=== PATIENT | female | born 1945 | race Asian ===

== ENCOUNTER 2018-05-28 02:24 | Inpatient (IN) | payer MEDICARE, MEDICAID ==
[~2018-05-28] VITALS: Ht 160 cm; Wt 74.1 kg
[2018-05-28] VITALS (8 sets, daily range): BP systolic 107–128; BP diastolic 42–67
[2018-05-28] MEDS ORDERED: Acetaminophen 500mg (ES) tab ORAL ONE (02:30)
[2018-05-28] MEDS ORDERED: Cefepime HCl 1 GM in D5W 55 ML IVPB ONE (02:30)
[2018-05-28] MEDS ORDERED: Vancomycin 1 GM in NS 275 ML IV ONE (02:30)
[2018-05-28 03:10] LABS: APPEARANCE,URINE CLOUDY; BILIRUBIN, URINE NEGATIVE (NEGATIVE); COLOR,URINE PALE YELLOW; GLUCOSE, URINE (UA) NEGATIVE (NEGATIVE); HEMOGLOBIN 10.1 G/DL (12.0-16.0); KETONES,URINE NEGATIVE (NEGATIVE); LEUKOCYTE ESTERASE ,URINE 3+ (NEGATIVE); MEAN CORPUSCULAR VOLUME 86 FL (80-99); NITRITE,URINE NEGATIVE (NEGATIVE); PH,URINE 5 (4.5-8.0); PLATELET COUNT 228 K/UL (150-450); PROTEIN,URINE 2+ (NEGATIVE); RED BLOOD COUNT 3.59 M/UL (4.20-5.40); RED CELL DISTRIBUTION WIDTH 12.6 % (11.6-14.8); UROBILINOGEN,URINE NORMAL MG/DL (0.0-1.0); WHITE BLOOD COUNT 8.5 K/UL (4.8-10.8)
[2018-05-28 03:16] LABS: INR 0.9 (0.9-1.1)
[2018-05-28 03:18] LABS: ANION GAP 8 mmol/L (5-15); BLOOD UREA NITROGEN 32 mg/dL (7-18); CALCIUM 8.5 MG/DL (8.5-10.1); CARBON DIOXIDE 24 MMOL/L (21-32); CHLORIDE 105 MMOL/L (98-107); CREATININE 1.6 MG/DL (0.55-1.30); POTASSIUM 4.9 MMOL/L (3.5-5.1); SODIUM 137 MMOL/L (136-145)
[2018-05-28 03:30] LABS: ALANINE AMINOTRANSFERASE 23 U/L (12-78); ALBUMIN 2.8 G/DL (3.4-5.0); ALBUMIN/GLOBULIN RATIO 0.6 (1.0-2.7); ALKALINE PHOSPHATASE 112 U/L (46-116); ASPARTATE AMINO TRANSFERASE 21 U/L (15-37); BILIRUBIN,TOTAL 0.5 MG/DL (0.2-1.0); CREATINE KINASE 25 U/L (26-308)
--- NOTE | 2018-05-28 03:33 | Diagnostic Imaging Report ---
EXAM: XR Chest, 1 View CLINICAL HISTORY: COUGH TECHNIQUE: Frontal view of the chest. COMPARISON: No relevant prior studies available. FINDINGS: Artifacts: Small triangular shaped density projecting over the cardiovascular silhouette which may reflect overlapping artifact. Lungs: Low lung volumes accentuate pulmonary markings. Mild streaky densities in the lung bases likely mild atelectasis. Pleural space: Unremarkable. No pneumothorax. Heart: Cardiovascular silhouette, upper limits of normal accentuated by low lung volume. Mediastinum: Unremarkable. Bones/joints: Prior vertebral plasty in the upper lumbar spine Vasculature: Calcified mildly tortuous thoracic aorta. IMPRESSION: Low lung volume. Probable mild bibasilar atelectasis. Findings which may reflect overlapping artifact projecting over the cardiovascular silhouette. Follow-up PA and lateral chest for better visualization when patient is able
--- NOTE | 2018-05-28 03:47 | Emergency Room Report ---
History of Present Illness General Chief Complaint: Fever Source: Patient, Medical Record, EMS Present Illness HPI Patient presents with fever and body aches. She's been ill for 3 days. She denies diarrhea. She hasn't any cough or chest pain. She vomited once. She had chills today. Patient diabetic with peripheral vascular disease. No other history is obtainable. Allergies: Coded Allergies: No Known Allergies (Unverified , 05/28/18) Patient History Limited by: medical condition Past Medical History: see triage record Past Surgical History: other - foot amputation Social History: Denies: smoking Social History Narrative SNF Last Menstrual Period: none Now: No Reviewed Nursing Documentation: PMH: Agreed; PSxH: Agreed Nursing Documentation-PMH Hx Cardiac Problems: Yes - CAD, high cholesterol Hx Hypertension: Yes Hx Diabetes: Yes - Type 2 Hx Neurological Problems: Yes - Neuropathy pain Review of Systems All Other Systems: limited Physical Exam Vital Signs Date Time Temp Pulse Resp B/P (MAP) Pulse Ox O2 Delivery O2 Flow Rate FiO2 05/28/18 02:12 103.5 90 15 144/69 98 Room Air Sp02 EP Interpretation: reviewed, normal General Appearance: well appearing, no apparent distress, other - GCS 14 Head: normocephalic Eyes: bilateral eye normal inspection, bilateral eye PERRL ENT: moist mucus membranes Neck: supple Respiratory: lungs clear, normal breath sounds Cardiovascular #1: regular rate, rhythm Cardiovascular #2: 2+ radial (R) Gastrointestinal: normal inspection, normal bowel sounds, non tender, no mass, non-distended Genitourinary: no CVA tenderness Musculoskeletal: back normal, normal range of motion, other - post amputation R transmetatarsal Neurologic: alert, oriented x3, motor strength/tone normal, sensory intact Psychiatric: mood/affect normal Skin: normal inspection, warm/dry Medical Decision Making Diagnostic Impression: Primary Impression: Urinary tract infection Qualified Codes: N39.0 - Urinary tract infection, site not specified Additional Impressions: Renal insufficiency Hyperglycemia ER Course Patient presents with fever and body aches with the possibility of symptoms. Differential includes sepsis, diabetic ketoacidosis, urinary tract infection, pneumonia amongst others including viral syndrome. Patient will be evaluated with EKG, chest x-ray and labs including blood cultures and lactate. The patient will be treated with IV hydration and Tylenol. Due to the clarity the lungs urine is highly suspected. Antibiotic's will be started for covering urinary tract infection. WBC normal but L shift. CMP with renal insufficiency. Troponin normal. Elevated BNP. Normal lactate. Glucose 174. Patient improved with treatment. Needs further evaluation for source of infection and continued antibiotics with monitoring of renal function. Admit med Dr. Will. EKG Diagnostic Results Rate: normal Rhythm: NSR ST Segments: no acute changes Rhythm Strip Diag. Results EP Interpretation: yes Rhythm: NSR, no PVC's, no ectopy Chest X-Ray Diagnostic Results Chest X-Ray Diagnostic Results : Chest X-Ray Ordered: Yes # of Views/Limited/Complete: 1 View Indication: Chest Pain Interpretation: no effusion, no pneumothorax, other - atelectasis Impression: Other Electronically Signed by: Electronically signed by Levar Merida MD Status: improved Disposition: ADMITTED INPATIENT Condition: Serious Levar Merida MD May 28, 2018 03:47
[2018-05-28] MEDS ORDERED: Vancomycin 1gm/D5W 275ml IVPB SCH ×4 (05:00→17:00)
[2018-05-28] MEDS ORDERED: traMADol 50mg tab ORAL PRN (07:45)
[2018-05-28] MEDS ORDERED: Lactulose 20gm/30ml UDC ORAL ONE (08:45)
[2018-05-28] MEDS ORDERED: Lactulose 20gm/30ml UDC ORAL PRN (09:30)
[2018-05-28] MEDS: Vitamin D 1000 IU Tab ORAL SCH ×2 (09:47→17:02)
[2018-05-28] MEDS: Losartan 50mg tab ORAL SCH (09:48)
[2018-05-28] MEDS: Aspirin EC 81mg tab ORAL SCH (09:48)
[2018-05-28] MEDS: Carvedilol 12.5mg tab ORAL SCH ×2 (09:49→21:00)
[2018-05-28] MEDS: Heparin 5000 units/ml inj SUBQ SCH ×2 (09:52→21:09)
[2018-05-28] MEDS: Piperacillin/Tazobactam 3.375 GM in D5W 110 ML IVPB SCH ×2 (10:08→21:08)
[2018-05-28] MEDS: NovoLOG Insulin Flexpen SUBQ SCH ×3 (12:30→21:10)
[2018-05-28] MEDS: HydrALAZINE 50mg tab ORAL SCH ×2 (13:09→21:09)
--- NOTE | 2018-05-28 18:16 | Consultation ---
DATE OF CONSULTATION: 05/28/2018 INFECTIOUS DISEASES CONSULTATION This consult is for coverage of Dr. Will. PRIMARY ATTENDING: Levar Will M.D. REASON FOR CONSULTATION: UTI and fever. HISTORY OF PRESENT ILLNESS: A 72-year-old female, who is a [place]iary resident, admitted today because of fever. The patient had a temperature up to 103.5 degrees in the ER. She has been here for the last couple of days complaining of body pains. 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 ALLERGIES: No known drug allergies. MEDICATIONS: Januvia, Lipitor, Xalatan eye drops, fish oil, vancomycin, Zosyn, insulin, heparin, gabapentin, vitamin D, Plavix, Cozaar, hydrochlorothiazide, aspirin, carvedilol, amlodipine, Protonix, ferrous sulfate, Bisacodyl, Tylenol, and tramadol. SOCIAL HISTORY: detention resident. No history of alcohol, drug abuse, or smoking. She is single. REVIEW OF SYSTEMS: As history of present illness with fever and body aches. No nausea. No vomiting. No diarrhea. PHYSICAL EXAMINATION: VITAL SIGNS: Temperature 98.4 degrees, pulse 79, blood pressure 115/56. GENERAL APPEARANCE: Seems to be normal rate. No acute distress. HEAD AND NECK: Bolton conjunctiva. No oral lesion. HEART: S1, S2 regular. LUNGS: Clear. ABDOMEN: Soft and nontender. EXTREMITIES: She has no edema. The patient has amputation in right forefoot with loss of all of toes in the right side. The amputation site is well healed. There is no skin lesion. NEUROLOGIC: She seems awake, alert, verbal. LABORATORY AND DIAGNOSTIC DATA: Sodium 137, potassium 4.9, chloride 105, bicarbonate 24, BUN 32, creatinine 1.6, and glucose 174. WBC 8.5, hemoglobin 10.1, hematocrit 31, and platelet 228,000. UA showed leukocyte esterase 3+, WBC of 20 to 30, RBC 2 to 4. Influenza A and B antigens were negative. IMPRESSION: Fever, likely secondary to urinary tract infection. The patient has pyuria, has diabetes mellitus, hypertension, coronary artery disease, anemia, and renal failure. RECOMMENDATION: Continue with Zosyn and vancomycin. We will follow up the cultures and taper antibiotics. At the end of my exam, I thank Dr. Will for involving me in the care of this patient. Anthony Costello M.D. DR: Lloyd JOB#: [id number] CC: PASCUAL
--- NOTE | 2018-05-28 19:32 | History and Physical Report ---
DATE OF ADMISSION: 05/28/2018 CHIEF COMPLAINT: fevers. HISTORY OF PRESENT ILLNESS: The patient is a 72-year-old female. She has history of hypertension, diabetes. She has history of right transmetatarsal amputation because of peripheral artery disease and diabetic foot infection. She was transferred from a residential facility with complaints of fevers and chills. According to the patient, she was well until the night of admission when she developed severe chills and rigors. She had high fever and was transferred to the emergency room. She denies any chest pain. She has had no shortness of breath. No cough. She had 1 episode of vomiting, but denies any diarrhea. On evaluation in the emergency room, she did have 20-30 wbc's in her urine. She was febrile to 103.5. The patient has been pancultured and broad-spectrum IV antibiotics have been instituted. She is now admitted for further evaluation and care. She states that her roommate has been ill. She also notes some pain in the right foot that she previously had the amputation. PAST MEDICAL HISTORY: As above. PAST SURGICAL HISTORY: As above. CURRENT MEDICATIONS: Reconciled and reviewed. ALLERGIES: None. FAMILY HISTORY: None. SOCIAL HISTORY: Negative for tobacco, ethanol, or drugs. REVIEW OF SYSTEMS: GENERAL: Positive for fevers and chills. HEENT: No headaches or visual changes. CARDIOPULMONARY: No chest pain or shortness of breath. GASTROINTESTINAL: Positive nausea and vomiting. No diarrhea. GENITOURINARY: No urgency or frequency. MUSCULOSKELETAL: Positive right foot pain. NEUROLOGIC: No evidence of seizures. PHYSICAL EXAMINATION: VITAL SIGNS: Temperature 103.5, pulse 90, respirations 15, blood pressure 144/69. GENERAL: The patient is a well-developed female, in no apparent distress. HEART: Regular rate and rhythm. LUNGS: Clear. ABDOMEN: Soft, nontender, nondistended. EXTREMITIES: Without clubbing or cyanosis. There is a right well-healed transmetatarsal amputation without any erythema or discharge noted. LABORATORY DATA: UA showed 20-30 wbc's. White count 8, hemoglobin 10, hematocrit 31. Sodium 137, creatinine 1.6. Coags were normal. ASSESSMENT AND PLAN: This is a pleasant female with history of diabetes, hypertension, recent transmetatarsal amputation with complaints of fevers and chills, suspect secondary to urinary tract infection. The patient does have pain in the right foot. Ordered MRI to rule out infection. We will continue broad-spectrum IV antibiotics. ID and Cardiology consultation will be obtained. Plan of care was discussed at the bedside with the patient's family. Arnold Rivera M.D. DR: Maicol JOB#: [id number] CC:
--- NOTE | 2018-05-28 19:46 | Consultation ---
DATE OF CONSULTATION: 05/28/2018 CONSULTING PHYSICIAN: Levar Will M.D. REFERRING PHYSICIAN: Arnold Rivera M.D. REASON FOR CONSULTATION: Elevated natriuretic peptide, evaluate for congestive heart failure. HISTORY OF PRESENT ILLNESS: I was asked to assess this 72-year-old [place] female, who resides at a [facility] facility and was admitted to the hospital with fevers of 103.5 and signs of an acute urinary tract infection with sepsis. Of concern, is an elevated natriuretic peptide assay prompting this consultation. The patient has had body aches for several days. She has fevers and chills this evening. She was increasingly withdrawn and lethargic. She did not have any complaints of chest pain or shortness of breath, cough or sputum production or noted leg swelling. ALLERGIES: No known drug allergies. MEDICATIONS: Prior to admission, reviewed and reconciled. PAST MEDICAL HISTORY: Includes coronary artery disease, hyperlipidemia, hypertension with hypertensive heart disease, cerebrovascular disease, peripheral neuropathy, type 2 diabetes mellitus, and chronic kidney disease due to diabetic nephropathy. SOCIAL HISTORY: No record of smoking, alcohol, or substance abuse. FAMILY HISTORY: Noncontributory. REVIEW OF SYSTEMS: A 10-point review of systems performed. All systems negative other than noted above. PHYSICAL EXAMINATION: VITAL SIGNS: In the emergency room, temperature was 103.5, blood pressure 144/69, heart rate 90, respiratory rate 15, and oxygen saturation 98% on room air. Current vital signs, blood pressure 115/56, pulse 79, respirations 18, afebrile, and room air oxygen saturation 97%. HEENT: Conjunctivae pink. Sclerae anicteric. Oropharynx clear. Mucous membranes dry. NECK: Supple. Jugular venous pressure normal. LUNGS: Diminished breath sounds. No wheezing. CARDIAC: Regular rhythm and rate. Normal S1, S2. There is a fourth heart sound. ABDOMEN: Soft and nontender. No guarding or rebound. EXTREMITIES: No clubbing or cyanosis. Slightly decreased capillary refill. No edema. NEUROLOGIC: Mild cognitive impairment. Symmetric strength. Exam is limited by language barrier. DIAGNOSTIC DATA: Chest x-ray with atelectasis and it is a poor study. EKG reveals sinus rhythm with no acute ST-T wave abnormalities. LABORATORY DATA: White count 8.5, hemoglobin 10.1, and platelet count 228,000. Lactic acid 1. Troponin 0.041. Pro natriuretic peptide 1884. Albumin 2.8. BUN 32, creatinine 1.6, sodium 137, potassium 4.9, and bicarb 24. Urinalysis with 20 to 30 white cells. IMPRESSION: 1. Sepsis. 2. Urinary tract infection. 3. Possible pneumonia. 4. No clinical signs of acute congestive heart failure, likely chronic diastolic congestive heart failure. 5. Hypertensive heart disease. 6. Ischemic cardiomyopathy with stable angina. 7. Type 2 diabetes mellitus with neuropathy and nephropathy. 8. Moderate protein-calorie malnutrition. PLAN: 1. Cautious hydration. 2. Panculture. 3. Broad-spectrum antibiotics. 4. Repeat chest x-ray. 5. Respiratory hygiene. 6. Protein supplement. 7. Antiplatelet therapy. 8. Titrate antianginal and antihypertensives based on clinical parameters. 9. DVT prophylaxis. Levar Will M.D. DR: BUSHRA JOB#: [id number] CC:
[2018-05-28] MEDS: Atorvastatin 20mg tab ORAL SCH (21:08)
[2018-05-28] MEDS: Latanoprost 0.005% Opth 2.5ml Soln BOTH EYES SCH (21:08)
[2018-05-29] VITALS: BP 112/54
[2018-05-29 04:00] VITALS: BP 115/55
[2018-05-29] MEDS: HydrALAZINE 50mg tab ORAL SCH ×3 (05:58→21:46)
[2018-05-29] MEDS: NovoLOG Insulin Flexpen SUBQ SCH ×4 (05:59→20:29)
--- NOTE | 2018-05-29 07:16 | General Progress Note ---
Assessment/Plan Problem List: (1) Urinary tract infection ICD Codes: N39.0 - Urinary tract infection, site not specified SNOMED: 04292438 (2) Hyperglycemia ICD Codes: R73.9 - Hyperglycemia, unspecified SNOMED: 71773068 (3) Renal insufficiency ICD Codes: N28.9 - Disorder of kidney and ureter, unspecified SNOMED: 697715310, 393210126 (4) Sepsis ICD Codes: A41.9 - Sepsis, unspecified organism SNOMED: 94306656 Status: stable, progressing Assessment/Plan iv abx follow up cultures tylenol for fever mri right foot to r/o osteo Subjective ROS Limited/Unobtainable: No Constitutional: Reports: fever, malaise, weakness HEENT: Reports: no symptoms Cardiovascular: Reports: no symptoms Respiratory: Reports: no symptoms Gastrointestinal/Abdominal: Reports: no symptoms Genitourinary: Reports: no symptoms Neurologic/Psychiatric: Reports: no symptoms Endocrine: Reports: no symptoms Hematologic/Lymphatic: Reports: no symptoms Allergies: Coded Allergies: No Known Allergies (Unverified , 05/28/18) All Systems: reviewed and negative except above Subjective feels better. still with low grade temps. still with right foot pain Objective Last 24 Hour Vital Signs Date Time Temp Pulse Resp B/P (MAP) Pulse Ox O2 Delivery O2 Flow Rate FiO2 05/29/18 05:58 115/55 05/29/18 04:00 97.8 85 18 115/55 (75) 98 05/29/18 00:00 99.7 89 20 112/54 (73) 99 05/28/18 21:09 112/54 05/28/18 21:00 92 112/54 05/28/18 20:24 99.9 92 18 112/54 (73) 91 05/28/18 20:19 Room Air 05/28/18 16:00 97.9 77 18 128/67 (87) 97 05/28/18 13:09 114/56 05/28/18 12:00 98.2 74 18 114/56 (75) 97 05/28/18 09:49 79 115/56 05/28/18 09:49 79 115/56 05/28/18 09:48 115/56 05/28/18 09:00 Room Air 05/28/18 08:00 98.4 79 18 115/56 (75) 97 Intake and Output 05/28/18 05/29/18 19:00 07:00 Intake Total 1150 ml 910.0 ml Balance 1150 ml 910.0 ml Intake Oral 800 ml 200 ml IV Total 350 ml 710.0 ml # Voids 1 3 Height (Feet): 5 Height (Inches): 3.00 Weight (Pounds): 161 General Appearance: WD/WN, alert Neck: supple Cardiovascular: normal rate, regular rhythm Respiratory/Chest: chest wall non-tender, lungs clear, normal breath sounds, no respiratory distress Abdomen: normal bowel sounds, non tender, soft, no organomegaly Edema: no edema noted Arm (L), no edema noted Arm (R), no edema noted Leg (L), no edema noted Leg (R), no edema noted Pedal (L), no edema noted Pedal (R), no edema noted Generalized Arnold Rivera MD May 29, 2018 07:16
[2018-05-29 08:01] LABS: BASOPHILS % (AUTO) 0.6 % (0.0-2.0); EOSINOPHILS % (AUTO) 1.8 % (0.0-3.0); HEMATOCRIT 28.2 % (37.0-47.0); HEMOGLOBIN 9.3 G/DL (12.0-16.0); LYMPHOCYTES % (AUTO) 16.5 % (20.0-45.0); MEAN CORPUSCULAR VOLUME 87 FL (80-99); MONOCYTES % (AUTO) 11.9 % (1.0-10.0); NEUTROPHILS % (AUTO) 69.3 % (45.0-75.0); PLATELET COUNT 204 K/UL (150-450); RED BLOOD COUNT 3.23 M/UL (4.20-5.40); RED CELL DISTRIBUTION WIDTH 12.8 % (11.6-14.8)
[2018-05-29 08:09] VITALS: BP 114/57
[2018-05-29 08:22] LABS: ALANINE AMINOTRANSFERASE 23 U/L (12-78); ALBUMIN 2.3 G/DL (3.4-5.0); ALBUMIN/GLOBULIN RATIO 0.5 (1.0-2.7); ALKALINE PHOSPHATASE 99 U/L (46-116); ANION GAP 9 mmol/L (5-15); ASPARTATE AMINO TRANSFERASE 20 U/L (15-37); BILIRUBIN,TOTAL 0.4 MG/DL (0.2-1.0); BLOOD UREA NITROGEN 28 mg/dL (7-18); CALCIUM 7.9 MG/DL (8.5-10.1); CARBON DIOXIDE 22 MMOL/L (21-32); CHLORIDE 106 MMOL/L (98-107); CHOLESTEROL 131 MG/DL (< 200); CREATININE 1.7 MG/DL (0.55-1.30); HDL CHOLESTEROL 40 MG/DL (40-60); POTASSIUM 4.5 MMOL/L (3.5-5.1); SODIUM 137 MMOL/L (136-145); TRIGLYCERIDES 140 MG/DL (30-150)
[2018-05-29] MEDS: Carvedilol 12.5mg tab ORAL SCH ×2 (08:22→20:27)
[2018-05-29] MEDS: Aspirin EC 81mg tab ORAL SCH (08:23)
[2018-05-29] MEDS: Losartan 50mg tab ORAL SCH (08:23)
[2018-05-29] MEDS: Vitamin D 1000 IU Tab ORAL SCH (08:24)
[2018-05-29] MEDS: Heparin 5000 units/ml inj SUBQ SCH ×2 (08:25→20:28)
[2018-05-29] MEDS: Piperacillin/Tazobactam 3.375 GM in D5W 110 ML IVPB SCH ×2 (10:35→21:46)
--- NOTE | 2018-05-29 10:59 | Infectious Diseases Prog Note ---
Assessment/Plan Assessment/Plan antibiotics : vancomycin iv, zosyn A 1. gram negative UTI 2. renal failure 3. diabetes mellitus 4. hypertension P 1. continue zosyn 2. d/c iv vancomycin 3. will follow up cultures 4. US abdomen Subjective ROS Limited/Unobtainable: Yes Allergies: Coded Allergies: No Known Allergies (Unverified , 05/28/18) Objective Vital Signs Last 24 Hour Vital Signs Date Time Temp Pulse Resp B/P (MAP) Pulse Ox O2 Delivery O2 Flow Rate FiO2 05/29/18 09:00 Room Air 05/29/18 08:24 82 114/57 05/29/18 08:23 114/57 05/29/18 08:22 82 114/57 05/29/18 08:09 98.8 82 18 114/57 (76) 05/29/18 05:58 115/55 05/29/18 04:00 97.8 85 18 115/55 (75) 98 05/29/18 00:00 99.7 89 20 112/54 (73) 99 05/28/18 21:09 112/54 05/28/18 21:00 92 112/54 05/28/18 20:24 99.9 92 18 112/54 (73) 91 05/28/18 20:19 Room Air 05/28/18 16:00 97.9 77 18 128/67 (87) 97 05/28/18 13:09 114/56 05/28/18 12:00 98.2 74 18 114/56 (75) 97 Height (Feet): 5 Height (Inches): 3.00 Weight (Pounds): 161 Respiratory/Chest: lungs clear Cardiovascular: normal rate, regular rhythm, no gallop/murmur Abdomen: soft, non tender Extremities: no edema Microbiology Date/Time Source Procedure Growth Status 05/28/18 02:40 Blood Blood Culture - Preliminary NO GROWTH AFTER 24 HOURS Resulted 05/28/18 02:25 Blood Blood Culture - Preliminary NO GROWTH AFTER 24 HOURS Resulted 05/28/18 05:00 Nasal Nares Influenza Types A,B Antigen (ALFRED) - Final Complete 05/28/18 02:30 Urine,Clean Catch Urine Culture - Preliminary Gram Negative Bacillus 1 Resulted Laboratory Tests Test 05/29/18 07:15 White Blood Count 8.0 K/UL (4.8-10.8) Red Blood Count 3.23 M/UL (4.20-5.40) L Hemoglobin 9.3 G/DL (12.0-16.0) L Hematocrit 28.2 % (37.0-47.0) L Mean Corpuscular Volume 87 FL (80-99) Mean Corpuscular Hemoglobin 28.8 PG (27.0-31.0) Mean Corpuscular Hemoglobin Concent 33.0 G/DL (32.0-36.0) Red Cell Distribution Width 12.8 % (11.6-14.8) Platelet Count 204 K/UL (150-450) Mean Platelet Volume 6.7 FL (6.5-10.1) Neutrophils (%) (Auto) 69.3 % (45.0-75.0) Lymphocytes (%) (Auto) 16.5 % (20.0-45.0) L Monocytes (%) (Auto) 11.9 % (1.0-10.0) H Eosinophils (%) (Auto) 1.8 % (0.0-3.0) Basophils (%) (Auto) 0.6 % (0.0-2.0) Sodium Level 137 MMOL/L (136-145) Potassium Level 4.5 MMOL/L (3.5-5.1) Chloride Level 106 MMOL/L (98-107) Carbon Dioxide Level 22 MMOL/L (21-32) Anion Gap 9 mmol/L (5-15) Blood Urea Nitrogen 28 mg/dL (7-18) H Creatinine 1.7 MG/DL (0.55-1.30) H Estimat Glomerular Filtration Rate mL/min (>60) Glucose Level 166 MG/DL (74-106) H Calcium Level 7.9 MG/DL (8.5-10.1) L Magnesium Level 1.5 MG/DL (1.8-2.4) L Total Bilirubin 0.4 MG/DL (0.2-1.0) Aspartate Amino Transf (AST/SGOT) 20 U/L (15-37) Alanine Aminotransferase (ALT/SGPT) 23 U/L (12-78) Alkaline Phosphatase 99 U/L (46-116) Pro-B-Type Natriuretic Peptide 9146 pg/mL (0-125) H Total Protein 6.9 G/DL (6.4-8.2) Albumin 2.3 G/DL (3.4-5.0) L Globulin 4.6 g/dL Albumin/Globulin Ratio 0.5 (1.0-2.7) L Triglycerides Level 140 MG/DL (30-150) Cholesterol Level 131 MG/DL (< 200) LDL Cholesterol 71 mg/dL (<100) HDL Cholesterol 40 MG/DL (40-60) Cholesterol/HDL Ratio 3.3 (3.3-4.4) Thyroid Stimulating Hormone (TSH) 1.953 uiU/mL (0.358-3.740) Current Medications Medications (Trade) Dose Ordered Sig/Paul Route PRN Reason Start Time Stop Time Status Last Admin Dose Admin Acetaminophen (Tylenol) 650 mg Q4H PRN ORAL Mild Pain/Temp > 100.5 05/28/18 07:45 06/27/18 07:44 Amlodipine Besylate (Norvasc) 10 mg DAILY ORAL 05/28/18 09:00 06/27/18 08:59 05/29/18 08:24 Aspirin (Ecotrin) 81 mg DAILY ORAL 05/28/18 09:00 06/27/18 08:59 05/29/18 08:23 Atorvastatin Calcium (Lipitor) 40 mg BEDTIME ORAL 05/28/18 21:00 06/27/18 20:59 05/28/18 21:08 Bisacodyl (Dulcolax) 10 mg DAILYPRN PRN RECTAL Constipation 05/28/18 08:45 06/27/18 08:44 Carvedilol (Coreg) 12.5 mg EVERY 12 HOURS ORAL 05/28/18 09:00 06/27/18 08:59 05/29/18 08:22 Clopidogrel Bisulfate (Plavix) 75 mg DAILY ORAL 05/28/18 09:00 06/27/18 08:59 05/29/18 08:24 Dextrose (Dextrose 50%) 25 ml Q30M PRN IV Hypoglycemia 05/28/18 07:45 06/27/18 07:44 Dextrose (Dextrose 50%) 50 ml Q30M PRN IV Hypoglycemia 05/28/18 07:45 06/27/18 07:44 Ferrous Sulfate (Feosol) 325 mg DAILY ORAL 05/28/18 09:00 06/27/18 08:59 05/29/18 08:23 Fish Oil (Fish Oil) 1,000 mg BID ORAL 05/28/18 18:00 06/27/18 08:59 05/29/18 08:23 Gabapentin (Neurontin) 300 mg THREE TIMES A DAY ORAL 05/28/18 09:00 06/27/18 08:59 05/29/18 08:23 Heparin Sodium (Porcine) (Heparin 5000 units/ml) 5,000 units EVERY 12 HOURS SUBQ 05/28/18 09:00 06/27/18 08:59 05/29/18 08:25 Hydralazine HCl (Apresoline) 50 mg Q8HR ORAL 05/28/18 14:00 06/27/18 13:59 05/28/18 13:09 Insulin Aspart (NovoLOG) BEFORE MEALS AND HS SUBQ 05/28/18 11:30 06/27/18 11:29 05/29/18 05:59 Lactulose (Cephulac) 30 gm DAILY PRN ORAL constipation 05/28/18 09:30 06/27/18 09:29 Latanoprost (Xalatan) 1 drop BEDTIME BOTH EYES 05/28/18 21:00 06/27/18 20:59 05/28/18 21:08 Losartan Potassium (Cozaar) 100 mg DAILY ORAL 05/28/18 09:00 06/27/18 08:59 05/29/18 08:23 Pantoprazole (Protonix) 40 mg DAILY ORAL 05/28/18 09:00 06/27/18 08:59 05/29/18 08:24 Piperacillin Sod/ Tazobactam Sod 3.375 gm/Dextrose 110 ml @ 27.5 mls/hr Q12H IVPB 05/28/18 10:00 06/04/18 09:59 05/29/18 10:35 Sitagliptin Phosphate (Januvia) 100 mg ACBREAKFAST ORAL 05/29/18 06:30 06/28/18 06:29 05/29/18 05:59 Sodium Chloride 1,000 ml @ 75 mls/hr [id number] IV 05/28/18 08:45 06/27/18 08:44 05/28/18 09:50 Tramadol HCl (Ultram) 50 mg Q6H PRN ORAL Moderate Pain (Pain Scale 4-6) 05/28/18 07:45 06/04/18 07:44 Vancomycin HCl (Vanco rx to dose) 1 ea DAILY PRN MISC Per rx protocol 05/28/18 08:45 06/27/18 08:44 Vancomycin HCl 1 gm/Dextrose 275 ml @ 183.708 mls/hr Q24H IVPB 05/28/18 17:00 06/02/18 16:59 05/28/18 17:03 Vitamin D (Vitamin D) 1,000 intlu BID ORAL 05/28/18 09:00 06/27/18 08:59 05/29/18 08:24 Lynda Holman MD May 29, 2018 10:59
--- NOTE | 2018-05-29 11:44 | Diagnostic Imaging Report ---
Indication: Cough Technique: One view of the chest Comparison: 05/28/2018 Findings: The heart is upper limits normal in size. The lungs and pleural spaces are clear. There is no significant interim change Impression: No acute process
[2018-05-29 12:15] VITALS: BP 109/61
--- NOTE | 2018-05-29 17:03 | Diagnostic Imaging Report ---
. Indication: Reason For Exam: INFECT Technique: Sagittal, axial, coronal T1 fast spin echo and fast spin echo STIR images of the ankle Comparison: none Findings: Patient is status post transmetatarsal amputation. Increased STIR signal with less extensive distal T1 abnormality is seen within the fourth metatarsal stump. Increased STIR signal with equivocal decreased distal less extensive T1 signal is seen in the third metatarsal stump. Decreased distal T1 signal is seen in the second and first metatarsal stumps. No other area of narrow signal abnormality is demonstrated. There is considerable edema of the superficial fat as well as the deep muscular compartments. Impression: Abnormal STIR signal with less extensive T1 signal abnormality within the first through fourth metatarsal stumps, in patient status post recent transmetatarsal indication. Uncertain as to whether signal changes are reactive due to the recent surgery, versus representing early osteomyelitis changes. Superficial soft tissue edema. No definite drainable soft tissue abscess demonstrated.
--- NOTE | 2018-05-29 18:12 | Cardiology Report ---
APPROVED REPORT EXAM: Two-dimensional and M-mode echocardiogram with Doppler and color Doppler. INDICATION Congestive Heart Failure M-Mode DIMENSIONS IVSd1.2 (0.7-1.1cm)Left Atrium (MM)3.9 (1.6-4.0cm) LVDd4.7 (3.5-5.6cm)Aortic Root3.0 (2.0-3.7cm) PWd1.1 (0.7-1.1cm)Aortic Cusp Exc.1.8 (1.5-2.0cm) LVDs3.3 (2.5-4.0cm) PWs1.9 cm Normal left ventricular chamber size, systolic function and wall motion. Left ventricular ejection fraction estimated to be 55 %. Mild left ventricular hypertrophy. Anterior Echo-free space, may be due to pericardial fat or effusion. All other cardiac chamber sizes are within normal limits. Mild focal aortic valve sclerosis with adequate cusp excursion. Mildly thickened mitral valve leaflets with normal excursion. Mild mitral annulus and aortic root calcification. Pulmonic valve not well visualized. Normal tricuspid valve structure. IVC dilated at 2.1 cm with physiological collapse. A color flow and spectral Doppler study was performed and revealed: Trace aortic insufficiency. Mild mitral regurgitation. Mitral diastolic velocities suggest mild left ventricular diastolic dysfunction (Grade I). Trace tricuspid regurgitation. Tricuspid systolic velocities suggests peak right ventricular systolic pressure of 22 mmHg. Trace pulmonic regurgitation present.
[2018-05-29 20:00] VITALS: BP 109/47
[2018-05-29] MEDS: Atorvastatin 20mg tab ORAL SCH (20:27)
[2018-05-29] MEDS: Latanoprost 0.005% Opth 2.5ml Soln BOTH EYES SCH (20:27)
[2018-05-30] VITALS (7 sets, daily range): BP systolic 117–128; BP diastolic 54–68
--- NOTE | 2018-05-30 04:16 | Progress Note ---
DATE: 05/29/2018 CARDIOLOGY PROGRESS NOTE SUBJECTIVE: The patient has no new complaints. She still has foot pain. No shortness of breath. OBJECTIVE: VITAL SIGNS: Blood pressure 115/55, pulse 85, respiratory rate 18, temperature max 99.7. LUNGS: Clear. CARDIAC: Regular. Normal S1, S2. ABDOMEN: Soft. EXTREMITIES: No edema. Foot has dressing in place. DIAGNOSTIC DATA: MRI cannot exclude osteomyelitis, there is no abscess. Chest x-ray with no acute process. Echocardiogram, ejection fraction and mild degenerative valve disease. LABORATORY DATA: White count 8, hemoglobin 9.3. Sodium 137, potassium 4.5, bicarbonate 22, BUN 28, creatinine 1.7, magnesium 1.5. Pro-natriuretic peptide has increased to 9000. IMPRESSION: 1. Sepsis. 2. Possible osteomyelitis. 3. Cellulitis. 4. Acute on chronic diastolic congestive heart failure. 5. Hypertensive heart disease. 6. Hypomagnesemia. 7. Lou-pvljqyj-qykmnvtgs diabetes mellitus. PLAN: 1. IV magnesium. 2. Discontinue IV fluids. 3. Continue antimicrobials. 4. Titrate antihypertensive. 5. DVT prophylaxis. 6. titration. 7. Antimicrobials per Infectious Disease window covering sales consultant. Levar Will M.D. DR: Hazel JOB#: [id number] CC:
[2018-05-30] MEDS: HydrALAZINE 50mg tab ORAL SCH ×3 (06:19→22:12)
--- NOTE | 2018-05-30 06:19 | General Progress Note ---
Assessment/Plan Problem List: (1) Urinary tract infection ICD Codes: N39.0 - Urinary tract infection, site not specified SNOMED: 71887055 (2) Hyperglycemia ICD Codes: R73.9 - Hyperglycemia, unspecified SNOMED: 47372344 (3) Renal insufficiency ICD Codes: N28.9 - Disorder of kidney and ureter, unspecified SNOMED: 120728273, 884543408 (4) Sepsis ICD Codes: A41.9 - Sepsis, unspecified organism SNOMED: 14292619 Status: stable, progressing Assessment/Plan iv abx follow up cultures- gnr in urine tylenol for fever mri right foot noted- ?post op changes vs early osteo podiatry eval Subjective ROS Limited/Unobtainable: No Constitutional: Reports: malaise, weakness HEENT: Reports: no symptoms Cardiovascular: Reports: no symptoms Respiratory: Reports: no symptoms Gastrointestinal/Abdominal: Reports: no symptoms Genitourinary: Reports: no symptoms Neurologic/Psychiatric: Reports: no symptoms Endocrine: Reports: no symptoms Hematologic/Lymphatic: Reports: no symptoms Allergies: Coded Allergies: No Known Allergies (Unverified , 05/28/18) All Systems: reviewed and negative except above Subjective feels better. MRI foot noted- ?periop changes vs early osteo Objective Last 24 Hour Vital Signs Date Time Temp Pulse Resp B/P (MAP) Pulse Ox O2 Delivery O2 Flow Rate FiO2 05/30/18 04:00 98.5 76 20 119/57 (77) 98 05/30/18 00:00 98.9 85 18 117/57 (77) 97 05/29/18 21:46 109/47 05/29/18 21:00 Room Air 05/29/18 20:27 75 109/47 05/29/18 20:00 98.6 75 19 109/47 (67) 98 05/29/18 14:18 119/63 05/29/18 12:15 98.4 80 18 109/61 (77) 93 05/29/18 09:00 Room Air 05/29/18 08:24 82 114/57 05/29/18 08:23 114/57 05/29/18 08:22 82 114/57 05/29/18 08:09 98.8 82 18 114/57 (76) Intake and Output 05/29/18 05/30/18 19:00 07:00 Intake Total 1162.5 ml 110.0 ml Balance 1162.5 ml 110.0 ml Intake Oral 600 ml IV Total 562.5 ml 110.0 ml # Voids 4 Laboratory Tests 05/29/18 07:15: White Blood Count 8.0, Red Blood Count 3.23L, Hemoglobin 9.3L, Hematocrit 28.2L , Mean Corpuscular Volume 87, Mean Corpuscular Hemoglobin 28.8, Mean Corpuscular Hemoglobin Concent 33.0, Red Cell Distribution Width 12.8, Platelet Count 204, Mean Platelet Volume 6.7, Neutrophils (%) (Auto) 69.3, Lymphocytes (% ) (Auto) 16.5L, Monocytes (%) (Auto) 11.9H, Eosinophils (%) (Auto) 1.8, Basophils (%) (Auto) 0.6, Sodium Level 137, Potassium Level 4.5, Chloride Level 106, Carbon Dioxide Level 22, Anion Gap 9, Blood Urea Nitrogen 28H, Creatinine 1.7H, Estimat Glomerular Filtration Rate , Glucose Level 166H, Calcium Level 7.9L, Magnesium Level 1.5L, Total Bilirubin 0.4, Aspartate Amino Transf (AST/ SGOT) 20, Alanine Aminotransferase (ALT/SGPT) 23, Alkaline Phosphatase 99, Pro-B -Type Natriuretic Peptide 9146H, Total Protein 6.9, Albumin 2.3L, Globulin 4.6, Albumin/Globulin Ratio 0.5L, Triglycerides Level 140, Cholesterol Level 131, LDL Cholesterol 71, HDL Cholesterol 40, Cholesterol/HDL Ratio 3.3, Thyroid Stimulating Hormone (TSH) 1.953 Height (Feet): 5 Height (Inches): 3.00 Weight (Pounds): 161 General Appearance: WD/WN, alert Neck: supple Cardiovascular: regular rhythm Respiratory/Chest: lungs clear, normal breath sounds Abdomen: normal bowel sounds, non tender, soft, no organomegaly Edema: no edema noted Arm (L), no edema noted Arm (R), no edema noted Leg (L), no edema noted Leg (R), no edema noted Pedal (L), no edema noted Pedal (R), no edema noted Generalized Neurologic: report developer II-XII grossly normal, no motor/sensory deficits, abnormal gait Arnold Rivera MD May 30, 2018 06:19
[2018-05-30] MEDS: NovoLOG Insulin Flexpen SUBQ SCH ×4 (06:20→20:53)
[2018-05-30] MEDS: Carvedilol 12.5mg tab ORAL SCH ×2 (09:33→20:53)
[2018-05-30] MEDS: Aspirin EC 81mg tab ORAL SCH (09:34)
[2018-05-30] MEDS: Heparin 5000 units/ml inj SUBQ SCH ×2 (09:36→20:54)
[2018-05-30] MEDS: Losartan 50mg tab ORAL SCH (09:38)
[2018-05-30] MEDS: Piperacillin/Tazobactam 3.375 GM in D5W 110 ML IVPB SCH ×2 (10:01→21:10)
--- NOTE | 2018-05-30 10:49 | Infectious Diseases Prog Note ---
Assessment/Plan Assessment/Plan antibiotics : zosyn 05.28.18 - A 1. e.coli UTI 2. renal failure 3. diabetes mellitus 4. hypertension P 1. continue zosyn 2. will follow up cultures 3. US abdomen pending Subjective ROS Limited/Unobtainable: Yes Allergies: Coded Allergies: No Known Allergies (Unverified , 05/28/18) Objective Vital Signs Last 24 Hour Vital Signs Date Time Temp Pulse Resp B/P (MAP) Pulse Ox O2 Delivery O2 Flow Rate FiO2 05/30/18 09:38 127/68 05/30/18 09:34 78 127/68 05/30/18 09:33 78 127/68 05/30/18 09:27 78 127/68 (87) 05/30/18 08:54 97.7 75 18 124/55 (78) 95 05/30/18 06:19 119/57 05/30/18 04:00 98.5 76 20 119/57 (77) 98 05/30/18 00:00 98.9 85 18 117/57 (77) 97 05/29/18 21:46 109/47 05/29/18 21:00 Room Air 05/29/18 20:27 75 109/47 05/29/18 20:00 98.6 75 19 109/47 (67) 98 05/29/18 14:18 119/63 05/29/18 12:15 98.4 80 18 109/61 (77) 93 Height (Feet): 5 Height (Inches): 3.00 Weight (Pounds): 161 Respiratory/Chest: lungs clear Cardiovascular: normal rate, regular rhythm, no gallop/murmur Abdomen: soft, non tender Extremities: no edema, other - right stump clean Microbiology Date/Time Source Procedure Growth Status 05/28/18 02:40 Blood Blood Culture - Preliminary NO GROWTH AFTER 48 HOURS Resulted 05/28/18 02:25 Blood Blood Culture - Preliminary NO GROWTH AFTER 48 HOURS Resulted 05/28/18 05:00 Nasal Nares MRSA Culture - Final NO METHICILLIN RESISTANT STAPH AUREUS... Complete 05/28/18 05:00 Nasal Nares Influenza Types A,B Antigen (ALFRED) - Final Complete 05/28/18 02:30 Urine,Clean Catch Urine Culture - Final Escherichia Coli - Esbl Complete 05/28/18 05:00 Rectum VRE Culture - Final NO VANCOMYCIN RESISTANT ENTEROCOCCUS ... Resulted 05/28/18 05:00 Rectum - Preliminary Resulted Current Medications Medications (Trade) Dose Ordered Sig/Paul Route PRN Reason Start Time Stop Time Status Last Admin Dose Admin Acetaminophen (Tylenol) 650 mg Q4H PRN ORAL Mild Pain/Temp > 100.5 05/28/18 07:45 06/27/18 07:44 Amlodipine Besylate (Norvasc) 10 mg DAILY ORAL 05/28/18 09:00 06/27/18 08:59 05/30/18 09:34 Aspirin (Ecotrin) 81 mg DAILY ORAL 05/28/18 09:00 06/27/18 08:59 05/30/18 09:34 Atorvastatin Calcium (Lipitor) 40 mg BEDTIME ORAL 05/28/18 21:00 06/27/18 20:59 05/29/18 20:27 Bisacodyl (Dulcolax) 10 mg DAILYPRN PRN RECTAL Constipation 05/28/18 08:45 06/27/18 08:44 Carvedilol (Coreg) 12.5 mg EVERY 12 HOURS ORAL 05/28/18 09:00 06/27/18 08:59 05/30/18 09:33 Clopidogrel Bisulfate (Plavix) 75 mg DAILY ORAL 05/28/18 09:00 06/27/18 08:59 05/30/18 09:34 Dextrose (Dextrose 50%) 25 ml Q30M PRN IV Hypoglycemia 05/28/18 07:45 06/27/18 07:44 Dextrose (Dextrose 50%) 50 ml Q30M PRN IV Hypoglycemia 05/28/18 07:45 06/27/18 07:44 Ferrous Sulfate (Feosol) 325 mg DAILY ORAL 05/28/18 09:00 06/27/18 08:59 05/30/18 09:34 Fish Oil (Fish Oil) 1,000 mg BID ORAL 05/28/18 18:00 06/27/18 08:59 05/30/18 09:34 Gabapentin (Neurontin) 300 mg THREE TIMES A DAY ORAL 05/28/18 09:00 06/27/18 08:59 05/30/18 09:33 Heparin Sodium (Porcine) (Heparin 5000 units/ml) 5,000 units EVERY 12 HOURS SUBQ 05/28/18 09:00 06/27/18 08:59 05/30/18 09:36 Hydralazine HCl (Apresoline) 50 mg Q8HR ORAL 05/28/18 14:00 06/27/18 13:59 05/30/18 06:19 Insulin Aspart (NovoLOG) BEFORE MEALS AND HS SUBQ 05/28/18 11:30 06/27/18 11:29 05/30/18 06:20 Lactulose (Cephulac) 30 gm DAILY PRN ORAL constipation 05/28/18 09:30 06/27/18 09:29 Latanoprost (Xalatan) 1 drop BEDTIME BOTH EYES 05/28/18 21:00 06/27/18 20:59 05/29/18 20:27 Losartan Potassium (Cozaar) 100 mg DAILY ORAL 05/28/18 09:00 06/27/18 08:59 05/30/18 09:38 Pantoprazole (Protonix) 40 mg DAILY ORAL 05/28/18 09:00 06/27/18 08:59 05/30/18 09:34 Piperacillin Sod/ Tazobactam Sod 3.375 gm/Dextrose 110 ml @ 27.5 mls/hr Q12H IVPB 05/28/18 10:00 06/04/18 09:59 05/30/18 10:01 Sitagliptin Phosphate (Januvia) 100 mg ACBREAKFAST ORAL 05/29/18 06:30 06/28/18 06:29 05/30/18 06:19 Tramadol HCl (Ultram) 50 mg Q6H PRN ORAL Moderate Pain (Pain Scale 4-6) 05/28/18 07:45 06/04/18 07:44 Lynda Holman MD May 30, 2018 10:49
--- NOTE | 2018-05-30 10:58 | Diagnostic Imaging Report ---
Indication: Increased renal function tests. Abdominal pain Technique: [place]-scale and duplex images of the upper abdomen were obtained. Doppler imaging of the hepatic and pancreatic vessels Comparison: none Findings: Exam is limited due to patient body habitus Gallbladder is unremarkable, without stones, wall thickening, nor pericholecystic fluid. Sonographic Steele's sign is negative. Common bile duct measures 3 mm in diameter. No intrahepatic biliary ductal dilatation. Liver demonstrates slightly increased echogenicity, no focal abnormality Portal vein and hepatic veins are patent. Pancreas cannot be visualized. Spleen is unremarkable. Left kidney measures 11.6 cm in length. Right kidney measures 10.6 cm length. Both kidneys demonstrate normal echogenicity. There is no hydronephrosis. No focal abnormality . Unremarkable inferior vena cava. Abdominal aorta is obscured by bowel gas . Impression: Limited exam due to patient body habitus, with nonvisualization of the pancreas or abdominal aorta Negative for gallstones or dilated ducts Equivocal slightly increased hepatic echogenicity, nonspecific
[2018-05-30] MEDS: Atorvastatin 20mg tab ORAL SCH (20:53)
[2018-05-30] MEDS: Latanoprost 0.005% Opth 2.5ml Soln BOTH EYES SCH (20:55)
--- NOTE | 2018-05-30 22:31 | Progress Note ---
DATE: 05/30/2018 CARDIOLOGY PROGRESS NOTE SUBJECTIVE: The patient has some pain on her right foot. MRI was noted. She has defervesced. She denies chest pain or shortness of breath. OBJECTIVE: VITAL SIGNS: Blood pressure 119/57, pulse 76, and respiratory rate 20. LUNGS: Clear. CARDIAC: Regular. Normal S1 and S2. ABDOMEN: Soft. EXTREMITIES: No edema. Right foot has dressing in place. IMPRESSION: 1. Acute on chronic diastolic congestive heart failure. 2. Hypertensive heart disease. 3. Hypomagnesemia. 4. Qvm-kfcumrc-uxggvrnti diabetes mellitus. 5. Right foot cellulitis. 6. Urinary tract infection. 7. Possible osteomyelitis. 8. Recovering sepsis. PLAN: 1. Off IV fluids. 2. Antimicrobials per Infectious Disease health and wellness sales consultant. 3. No indication for diuresis at this time. 4. We will continue DVT prophylaxis. Levar Will M.D. DR: NIKA JOB#: [id number] CC:
[2018-05-31] VITALS: BP 110/53
[2018-05-31 04:00] VITALS: BP 119/54
[2018-05-31] MEDS: NovoLOG Insulin Flexpen SUBQ SCH ×4 (05:53→20:35)
[2018-05-31] MEDS: HydrALAZINE 50mg tab ORAL SCH ×3 (05:54→21:17)
[2018-05-31 08:00] VITALS: BP 124/56
--- NOTE | 2018-05-31 08:14 | General Progress Note ---
Assessment/Plan Problem List: (1) Urinary tract infection ICD Codes: N39.0 - Urinary tract infection, site not specified SNOMED: 04748212 (2) Hyperglycemia ICD Codes: R73.9 - Hyperglycemia, unspecified SNOMED: 49637976 (3) Renal insufficiency ICD Codes: N28.9 - Disorder of kidney and ureter, unspecified SNOMED: 904388033, 460141432 (4) Sepsis ICD Codes: A41.9 - Sepsis, unspecified organism SNOMED: 74048021 Status: stable Assessment/Plan iv abx per id tylenol for fever mri right foot noted- ?post op changes vs early osteo podiatry eval Subjective ROS Limited/Unobtainable: No Constitutional: Reports: malaise, weakness HEENT: Reports: no symptoms Cardiovascular: Reports: no symptoms Respiratory: Reports: no symptoms Gastrointestinal/Abdominal: Reports: no symptoms Genitourinary: Reports: no symptoms Neurologic/Psychiatric: Reports: no symptoms Endocrine: Reports: no symptoms Hematologic/Lymphatic: Reports: no symptoms Allergies: Coded Allergies: No Known Allergies (Unverified , 05/28/18) All Systems: reviewed and negative except above Subjective feels better. esbl ecoli in urine. no fevers. no foot pain. c/o constipation Objective Last 24 Hour Vital Signs Date Time Temp Pulse Resp B/P (MAP) Pulse Ox O2 Delivery O2 Flow Rate FiO2 05/31/18 05:54 119/54 05/31/18 04:00 98.0 80 18 119/54 (75) 96 05/31/18 00:00 97.9 63 19 110/53 (72) 05/30/18 22:12 120/53 05/30/18 21:00 Room Air 05/30/18 20:53 76 125/54 05/30/18 20:00 99.5 76 18 125/54 (77) 93 05/30/18 15:57 98.7 74 18 117/61 (79) 95 05/30/18 14:15 130/63 05/30/18 12:26 98.2 71 18 128/54 (78) 96 05/30/18 09:38 127/68 05/30/18 09:34 78 127/68 05/30/18 09:33 78 127/68 05/30/18 09:27 78 127/68 (87) 05/30/18 09:00 Room Air 05/30/18 08:54 97.7 75 18 124/55 (78) 95 Intake and Output 05/30/18 05/31/18 19:00 07:00 Intake Total 720 ml 350.0 ml Output Total 900 ml Balance -180 ml 350.0 ml Intake Oral 720 ml 240 ml IV Total 110.0 ml Output Urine Total 900 ml # Voids 1 Height (Feet): 5 Height (Inches): 3.00 Weight (Pounds): 163 Objective General Appearance: WD/WN, alert Neck: supple Cardiovascular: regular rhythm Respiratory/Chest: lungs clear, normal breath sounds Abdomen: normal bowel sounds, non tender, soft, no organomegaly Edema: no edema noted Arm (L), no edema noted Arm (R), no edema noted Leg (L), no edema noted Leg (R), no edema noted Pedal (L), no edema noted Pedal (R), no edema noted Generalized Neurologic: organic extractions technician II-XII grossly normal, no motor/sensory deficits, abnormal gait Arnold Rivera MD May 31, 2018 08:14
[2018-05-31] MEDS ORDERED: Milk of Magnesia 30ml Ud ORAL PRN (08:15)
[2018-05-31] MEDS: Docusate 250mg cap ORAL SCH ×2 (08:30→17:31)
[2018-05-31] MEDS: Aspirin EC 81mg tab ORAL SCH (08:30)
[2018-05-31] MEDS ORDERED: Lactulose 20gm/30ml UDC ORAL PRN (08:30)
[2018-05-31] MEDS: Heparin 5000 units/ml inj SUBQ SCH ×2 (08:35→20:36)
[2018-05-31] MEDS: Losartan 50mg tab ORAL SCH (08:37)
[2018-05-31] MEDS: Carvedilol 12.5mg tab ORAL SCH ×2 (08:37→20:33)
[2018-05-31] MEDS: Piperacillin/Tazobactam 3.375 GM in D5W 110 ML IVPB SCH ×2 (09:12→21:17)
--- NOTE | 2018-05-31 10:38 | Infectious Diseases Prog Note ---
Assessment/Plan Assessment/Plan antibiotics : zosyn 05.28.18 - A 1. e.coli UTI 2. renal failure 3. diabetes mellitus 4. hypertension P 1. continue zosyn 3 more days 2. will follow up cultures Subjective Constitutional: Denies: fever, chills Respiratory: Denies: shortness of breath, dry cough Gastrointestinal/Abdominal: Denies: nausea, vomiting, diarrhea Musculoskeletal: Reports: pain - in back Allergies: Coded Allergies: No Known Allergies (Unverified , 05/28/18) Objective Vital Signs Last 24 Hour Vital Signs Date Time Temp Pulse Resp B/P (MAP) Pulse Ox O2 Delivery O2 Flow Rate FiO2 05/31/18 09:00 Room Air 05/31/18 08:37 79 124/56 05/31/18 08:37 79 124/56 05/31/18 08:37 124/56 05/31/18 08:00 97.9 79 18 124/56 (78) 96 05/31/18 05:54 119/54 05/31/18 04:00 98.0 80 18 119/54 (75) 96 05/31/18 00:00 97.9 63 19 110/53 (72) 05/30/18 22:12 120/53 05/30/18 21:00 Room Air 05/30/18 20:53 76 125/54 05/30/18 20:00 99.5 76 18 125/54 (77) 93 05/30/18 15:57 98.7 74 18 117/61 (79) 95 05/30/18 14:15 130/63 05/30/18 12:26 98.2 71 18 128/54 (78) 96 Height (Feet): 5 Height (Inches): 3.00 Weight (Pounds): 163 Respiratory/Chest: lungs clear Cardiovascular: normal rate, regular rhythm, no gallop/murmur Abdomen: soft, non tender Extremities: no edema, other Current Medications Medications (Trade) Dose Ordered Sig/Paul Route PRN Reason Start Time Stop Time Status Last Admin Dose Admin Acetaminophen (Tylenol) 650 mg Q4H PRN ORAL Mild Pain/Temp > 100.5 05/28/18 07:45 06/27/18 07:44 Amlodipine Besylate (Norvasc) 10 mg DAILY ORAL 05/28/18 09:00 06/27/18 08:59 05/30/18 09:34 Aspirin (Ecotrin) 81 mg DAILY ORAL 05/28/18 09:00 06/27/18 08:59 05/31/18 08:30 Atorvastatin Calcium (Lipitor) 40 mg BEDTIME ORAL 05/28/18 21:00 06/27/18 20:59 05/30/18 20:53 Bisacodyl (Dulcolax) 10 mg DAILYPRN PRN RECTAL Constipation 05/31/18 08:30 06/27/18 08:44 Carvedilol (Coreg) 12.5 mg EVERY 12 HOURS ORAL 05/28/18 09:00 06/27/18 08:59 05/30/18 20:53 Clopidogrel Bisulfate (Plavix) 75 mg DAILY ORAL 05/28/18 09:00 06/27/18 08:59 05/31/18 08:30 Dextrose (Dextrose 50%) 25 ml Q30M PRN IV Hypoglycemia 05/28/18 07:45 06/27/18 07:44 Dextrose (Dextrose 50%) 50 ml Q30M PRN IV Hypoglycemia 05/28/18 07:45 06/27/18 07:44 Docusate Sodium (Colace) 250 mg BID ORAL 05/31/18 09:00 06/30/18 08:59 05/31/18 08:30 Ferrous Sulfate (Feosol) 325 mg DAILY ORAL 05/28/18 09:00 06/27/18 08:59 05/31/18 08:29 Fish Oil (Fish Oil) 1,000 mg BID ORAL 05/28/18 18:00 06/27/18 08:59 05/31/18 08:29 Gabapentin (Neurontin) 300 mg THREE TIMES A DAY ORAL 05/28/18 09:00 06/27/18 08:59 05/31/18 08:30 Heparin Sodium (Porcine) (Heparin 5000 units/ml) 5,000 units EVERY 12 HOURS SUBQ 05/28/18 09:00 06/27/18 08:59 05/31/18 08:35 Hydralazine HCl (Apresoline) 50 mg Q8HR ORAL 05/28/18 14:00 06/27/18 13:59 05/31/18 05:54 Insulin Aspart (NovoLOG) BEFORE MEALS AND HS SUBQ 05/28/18 11:30 06/27/18 11:29 05/31/18 05:53 Lactulose (Cephulac) 30 gm DAILYPRN PRN ORAL constipation 05/31/18 08:30 06/27/18 09:29 Latanoprost (Xalatan) 1 drop BEDTIME BOTH EYES 05/28/18 21:00 06/27/18 20:59 05/30/18 20:55 Losartan Potassium (Cozaar) 100 mg DAILY ORAL 05/28/18 09:00 06/27/18 08:59 05/30/18 09:38 Magnesium Hydroxide (Mom) 30 ml DAILYPRN PRN ORAL Constipation 05/31/18 08:15 06/30/18 08:14 Pantoprazole (Protonix) 40 mg DAILY ORAL 05/28/18 09:00 06/27/18 08:59 05/31/18 08:30 Piperacillin Sod/ Tazobactam Sod 3.375 gm/Dextrose 110 ml @ 27.5 mls/hr Q12H IVPB 05/28/18 10:00 06/04/18 09:59 05/31/18 09:12 Sitagliptin Phosphate (Januvia) 100 mg ACBREAKFAST ORAL 05/29/18 06:30 06/28/18 06:29 05/31/18 05:53 Tramadol HCl (Ultram) 50 mg Q6H PRN ORAL Moderate Pain (Pain Scale 4-6) 05/28/18 07:45 06/04/18 07:44 Lynda Holman MD May 31, 2018 10:38
[2018-05-31 12:00] VITALS: BP 129/61
[2018-05-31 16:00] VITALS: BP 139/60
[2018-05-31 20:00] VITALS: BP 140/62
[2018-05-31] MEDS: Atorvastatin 20mg tab ORAL SCH (20:32)
[2018-05-31] MEDS: Latanoprost 0.005% Opth 2.5ml Soln BOTH EYES SCH (20:32)
--- NOTE | 2018-05-31 22:30 | Progress Note ---
DATE: 05/31/2018 CARDIOLOGY PROGRESS NOTE SUBJECTIVE: No chest pain. No shortness of breath. No fevers. No chills. OBJECTIVE: VITAL SIGNS: Blood pressure 119/54, pulse 80, respirations 18, and afebrile. LUNGS: Clear. CARDIAC: Regular. ABDOMEN: Soft. EXTREMITIES: No edema. LABORATORY DATA: Noted. IMPRESSION: 1. Possible osteomyelitis. 2. Escherichia coli urinary tract infection. 3. Acute on chronic diastolic congestive heart failure clinically compensated. 4. Hypertensive heart disease with controlled blood pressure. 5. Hypomagnesemia, status post replacement therapy. PLAN: 1. No change in cardiovascular regimen at this time. 2. No indication for diuresis. 3. DVT prophylaxis ongoing. 4. Antimicrobials per Infectious Disease internal consultant. Levar Will M.D. DR: ELIAS JOB#: [id number] CC:
[2018-06-01 01:00] VITALS: BP 126/60
[2018-06-01 04:00] VITALS: BP 135/65
[2018-06-01] MEDS: HydrALAZINE 50mg tab ORAL SCH ×3 (05:47→22:02)
[2018-06-01] MEDS: NovoLOG Insulin Flexpen SUBQ SCH ×4 (05:49→20:59)
[2018-06-01 08:00] VITALS: BP 130/70
--- NOTE | 2018-06-01 08:08 | General Progress Note ---
Assessment/Plan Problem List: (1) Urinary tract infection ICD Codes: N39.0 - Urinary tract infection, site not specified SNOMED: 00109996 Qualifiers: Qualified Codes: N39.0 - Urinary tract infection, site not specified (2) Hyperglycemia ICD Codes: R73.9 - Hyperglycemia, unspecified SNOMED: 85284222 (3) Renal insufficiency ICD Codes: N28.9 - Disorder of kidney and ureter, unspecified SNOMED: 237966409, 117613791 (4) Sepsis ICD Codes: A41.9 - Sepsis, unspecified organism SNOMED: 46307483 Status: stable, progressing Assessment/Plan iv abx per id tylenol for fever mri right foot noted- ?post op changes vs early osteo podiatry eval pending dc if cleared by podiatry Subjective ROS Limited/Unobtainable: No Constitutional: Reports: malaise, weakness HEENT: Reports: no symptoms Cardiovascular: Reports: no symptoms Respiratory: Reports: no symptoms Gastrointestinal/Abdominal: Reports: no symptoms Genitourinary: Reports: no symptoms Neurologic/Psychiatric: Reports: no symptoms Endocrine: Reports: no symptoms Hematologic/Lymphatic: Reports: no symptoms Allergies: Coded Allergies: No Known Allergies (Unverified , 05/28/18) All Systems: reviewed and negative except above Subjective feels better. esbl ecoli in urine. no fevers. no foot pain. c/o constipation id noted/appreciated Objective Last 24 Hour Vital Signs Date Time Temp Pulse Resp B/P (MAP) Pulse Ox O2 Delivery O2 Flow Rate FiO2 06/01/18 05:47 135/65 06/01/18 04:00 98.1 71 17 135/65 (88) 94 06/01/18 01:00 97.8 72 16 126/60 (82) 95 05/31/18 21:17 140/62 05/31/18 21:00 Room Air 05/31/18 20:33 78 140/62 05/31/18 20:00 97.7 78 16 140/62 (88) 94 05/31/18 16:00 98.0 78 16 139/60 (86) 95 05/31/18 14:19 139/60 05/31/18 12:00 98.2 77 16 129/61 (83) 95 05/31/18 09:00 Room Air 05/31/18 08:37 79 124/56 05/31/18 08:37 79 124/56 05/31/18 08:37 124/56 Intake and Output 05/31/18 06/01/18 19:00 07:00 Intake Total 680 ml 310.0 ml Balance 680 ml 310.0 ml Intake Oral 680 ml 200 ml IV Total 110.0 ml # Voids 6 4 Height (Feet): 5 Height (Inches): 3.00 Weight (Pounds): 163 Objective General Appearance: WD/WN, alert Neck: supple Cardiovascular: regular rhythm Respiratory/Chest: lungs clear, normal breath sounds Abdomen: normal bowel sounds, non tender, soft, no organomegaly Edema: no edema noted Arm (L), no edema noted Arm (R), no edema noted Leg (L), no edema noted Leg (R), no edema noted Pedal (L), no edema noted Pedal (R), no edema noted Generalized Neurologic: editor in chief newspaper II-XII grossly normal, no motor/sensory deficits, abnormal gait Arnold Rivera MD Jun 01, 2018 08:08
[2018-06-01 08:36] LABS: BASOPHILS % (AUTO) 0.8 % (0.0-2.0); EOSINOPHILS % (AUTO) 4.2 % (0.0-3.0); HEMATOCRIT 29.8 % (37.0-47.0); HEMOGLOBIN 9.7 G/DL (12.0-16.0); LYMPHOCYTES % (AUTO) 22.8 % (20.0-45.0); MEAN CORPUSCULAR VOLUME 86 FL (80-99); MONOCYTES % (AUTO) 9.9 % (1.0-10.0); NEUTROPHILS % (AUTO) 62.3 % (45.0-75.0); PLATELET COUNT 268 K/UL (150-450); RED BLOOD COUNT 3.45 M/UL (4.20-5.40); RED CELL DISTRIBUTION WIDTH 12.4 % (11.6-14.8); WHITE BLOOD COUNT 6.3 K/UL (4.8-10.8)
[2018-06-01 08:58] LABS: ALANINE AMINOTRANSFERASE 13 U/L (12-78); ALBUMIN 2.5 G/DL (3.4-5.0); ALBUMIN/GLOBULIN RATIO 0.5 (1.0-2.7); ALKALINE PHOSPHATASE 87 U/L (46-116); ANION GAP 5 mmol/L (5-15); ASPARTATE AMINO TRANSFERASE 12 U/L (15-37); BILIRUBIN,TOTAL 0.3 MG/DL (0.2-1.0); BLOOD UREA NITROGEN 16 mg/dL (7-18); CALCIUM 8.2 MG/DL (8.5-10.1); CARBON DIOXIDE 26 MMOL/L (21-32); CHLORIDE 108 MMOL/L (98-107); CREATININE 1.3 MG/DL (0.55-1.30); POTASSIUM 4.5 MMOL/L (3.5-5.1); SODIUM 139 MMOL/L (136-145)
[2018-06-01] MEDS: Carvedilol 12.5mg tab ORAL SCH ×2 (09:26→20:55)
[2018-06-01] MEDS: Docusate 250mg cap ORAL SCH ×2 (09:26→17:14)
[2018-06-01] MEDS: Losartan 50mg tab ORAL SCH (09:27)
[2018-06-01] MEDS: Aspirin EC 81mg tab ORAL SCH (09:27)
[2018-06-01] MEDS: Piperacillin/Tazobactam 3.375 GM in D5W 110 ML IVPB SCH ×2 (09:28→21:30)
[2018-06-01] MEDS: Heparin 5000 units/ml inj SUBQ SCH ×2 (09:28→20:57)
[2018-06-01 12:00] VITALS: BP 144/65
[2018-06-01 16:00] VITALS: BP 133/65
[2018-06-01 20:00] VITALS: BP 133/63
[2018-06-01] MEDS: Atorvastatin 20mg tab ORAL SCH (20:55)
[2018-06-01] MEDS: Latanoprost 0.005% Opth 2.5ml Soln BOTH EYES SCH (21:06)
[2018-06-02] VITALS: BP 135/51
[2018-06-02 04:00] VITALS: BP 128/63
--- NOTE | 2018-06-02 05:00 | Consultation ---
DATE OF CONSULTATION: 05/31/2018 REFERRING PHYSICIAN: Arnold Rivera M.D. REASON FOR CONSULTATION: Pain to the right foot, status post TMA. HISTORY OF PRESENT ILLNESS: This is a 72-year-old diabetic patient who was admitted to [facility] with painful right foot. The patient states that a month ago she had a transmetatarsal amputation by Dr. Go. She states that even though it is healing she experiences some pain to the surgical site. The patient denies fever, chills, nausea, and vomiting. She states that her glucose and sugar levels are within normal limits and her white count is within normal limits. PAST MEDICAL HISTORY: Per PCP. PODIATRY EXAMINATION: VASCULAR: Dorsalis pedis is palpable. Capillary refilling time is about five seconds. Posterior tibial arteries are nonpalpable. No edema is noted to bilateral feet. NEUROLOGIC: Sharp and dull proprioception, protected threshold and vibratory sensations are diminished consistent with diabetic peripheral neuropathy. MUSCULOSKELETAL: The patient is status post TMA, right foot. Ambulatory. No gross abnormality can be appreciated. DERMATOLOGIC: The patient is status post TMA, right foot. The dorsal surgical scar is noted. Circumflexion to the lateral aspect and plantarly, there is a dry scab throughout the incision consistent with status post surgical incision and sutures. The plantar scab is noted to be within normal limits with postsurgical skin changes. Pain upon palpation, dorsal aspect over the incision site consistent with surgical site and postsurgical healing. ASSESSMENT AND PLAN: Diabetic patient post TMA, right foot, healing well with no contraindication and healing well. Time was taken to discuss postoperative changes and rehabilitation with the patient. It was explained to her that slowly she is going to have pain subside and getting better. She does state that she is getting better except the pain and discomfort has not completely gone away. Recommendation to apply cream to the surgical site to soften out postsurgical scabbing and skin changes. The patient is ready for the discharge from Podiatry standpoint. We will follow as needed. Levar Redding D.P.M DR: AURELIO/PEGGY JOB#: [id number] CC:
[2018-06-02] MEDS: HydrALAZINE 50mg tab ORAL SCH ×2 (05:59→15:03)
[2018-06-02] MEDS: NovoLOG Insulin Flexpen SUBQ SCH ×3 (06:38→16:42)
[2018-06-02 08:00] VITALS: BP 129/62
[2018-06-02] MEDS: Docusate 250mg cap ORAL SCH (08:41)
[2018-06-02] MEDS: Aspirin EC 81mg tab ORAL SCH (08:41)
[2018-06-02] MEDS: Losartan 50mg tab ORAL SCH (08:42)
[2018-06-02] MEDS: Carvedilol 12.5mg tab ORAL SCH (08:42)
[2018-06-02] MEDS: Heparin 5000 units/ml inj SUBQ SCH (08:43)
[2018-06-02] MEDS: Piperacillin/Tazobactam 3.375 GM in D5W 110 ML IVPB SCH (10:04)
[2018-06-02 12:00] VITALS: BP 127/74
[2018-06-02 16:00] VITALS: BP 132/69
--- NOTE | 2018-06-02 16:06 | Infectious Diseases Prog Note ---
Assessment/Plan Assessment/Plan A 1. E.coli UTI 2. renal failure improving 3. diabetes mellitus 4. hypertension P 1. continue Zosyn 2 more days 2. agree with discharge Subjective ROS Limited/Unobtainable: No Constitutional: Reports: no symptoms Respiratory: Reports: no symptoms Gastrointestinal/Abdominal: Reports: no symptoms Genitourinary: Reports: no symptoms Allergies: Coded Allergies: No Known Allergies (Unverified , 05/28/18) Objective Vital Signs Last 24 Hour Vital Signs Date Time Temp Pulse Resp B/P (MAP) Pulse Ox O2 Delivery O2 Flow Rate FiO2 06/02/18 15:03 127/74 06/02/18 12:00 97.8 66 20 127/74 (91) 94 06/02/18 09:29 97.7 06/02/18 09:00 Room Air 06/02/18 08:42 73 129/62 06/02/18 08:42 129/62 06/02/18 08:41 73 129/62 06/02/18 08:00 97.7 73 18 129/62 (84) 96 06/02/18 05:59 128/63 06/02/18 04:00 97.5 72 16 128/63 (84) 96 06/02/18 00:00 97.3 70 16 135/51 (79) 94 06/01/18 22:02 127/70 06/01/18 21:00 Room Air 06/01/18 20:55 93 133/63 06/01/18 20:00 97.9 69 16 133/63 (86) 93 Height (Feet): 5 Height (Inches): 3.00 Weight (Pounds): 163 General Appearance: no acute distress HEENT: mucous membranes moist Respiratory/Chest: lungs clear Cardiovascular: normal rate Abdomen: soft, non tender Extremities: no edema, other - R TM amputation Neurologic/Psychiatric: alert, oriented x 3, responsive Current Medications Medications (Trade) Dose Ordered Sig/Paul Route PRN Reason Start Time Stop Time Status Last Admin Dose Admin Acetaminophen (Tylenol) 650 mg Q4H PRN ORAL Mild Pain/Temp > 100.5 05/28/18 07:45 06/27/18 07:44 06/02/18 08:59 Amlodipine Besylate (Norvasc) 10 mg DAILY ORAL 05/28/18 09:00 06/27/18 08:59 11/16/18 08:41 Aspirin (Ecotrin) 81 mg DAILY ORAL 05/28/18 09:00 06/27/18 08:59 06/02/18 08:41 Atorvastatin Calcium (Lipitor) 40 mg BEDTIME ORAL 05/28/18 21:00 06/27/18 20:59 06/01/18 20:55 Bisacodyl (Dulcolax) 10 mg DAILYPRN PRN RECTAL Constipation 05/31/18 08:30 06/27/18 08:44 Carvedilol (Coreg) 12.5 mg EVERY 12 HOURS ORAL 05/28/18 09:00 06/27/18 08:59 06/02/18 08:42 Clopidogrel Bisulfate (Plavix) 75 mg DAILY ORAL 05/28/18 09:00 06/27/18 08:59 06/02/18 08:40 Dextrose (Dextrose 50%) 25 ml Q30M PRN IV Hypoglycemia 05/28/18 07:45 06/27/18 07:44 Dextrose (Dextrose 50%) 50 ml Q30M PRN IV Hypoglycemia 05/28/18 07:45 06/27/18 07:44 Docusate Sodium (Colace) 250 mg BID ORAL 05/31/18 09:00 06/30/18 08:59 06/02/18 08:41 Ferrous Sulfate (Feosol) 325 mg DAILY ORAL 05/28/18 09:00 06/27/18 08:59 06/02/18 08:42 Fish Oil (Fish Oil) 1,000 mg BID ORAL 05/28/18 18:00 06/27/18 08:59 06/02/18 08:41 Gabapentin (Neurontin) 300 mg THREE TIMES A DAY ORAL 05/28/18 09:00 06/27/18 08:59 06/02/18 12:19 Heparin Sodium (Porcine) (Heparin 5000 units/ml) 5,000 units EVERY 12 HOURS SUBQ 05/28/18 09:00 06/27/18 08:59 06/02/18 08:43 Hydralazine HCl (Apresoline) 50 mg Q8HR ORAL 05/28/18 14:00 06/27/18 13:59 06/02/18 15:03 Insulin Aspart (NovoLOG) BEFORE MEALS AND HS SUBQ 05/28/18 11:30 06/27/18 11:29 06/02/18 11:44 Lactulose (Cephulac) 30 gm DAILYPRN PRN ORAL constipation 05/31/18 08:30 06/27/18 09:29 Latanoprost (Xalatan) 1 drop BEDTIME BOTH EYES 05/28/18 21:00 06/27/18 20:59 06/01/18 21:06 Losartan Potassium (Cozaar) 100 mg DAILY ORAL 05/28/18 09:00 06/27/18 08:59 06/02/18 08:42 Magnesium Hydroxide (Mom) 30 ml DAILYPRN PRN ORAL Constipation 05/31/18 08:15 06/30/18 08:14 05/31/18 20:38 Pantoprazole (Protonix) 40 mg DAILY ORAL 05/28/18 09:00 06/27/18 08:59 06/02/18 08:41 Piperacillin Sod/ Tazobactam Sod 3.375 gm/Dextrose 110 ml @ 27.5 mls/hr Q12H IVPB 05/28/18 10:00 06/04/18 09:59 06/02/18 10:04 Sitagliptin Phosphate (Januvia) 100 mg ACBREAKFAST ORAL 05/29/18 06:30 06/28/18 06:29 06/02/18 05:58 Tramadol HCl (Ultram) 50 mg Q6H PRN ORAL Moderate Pain (Pain Scale 4-6) 05/28/18 07:45 06/04/18 07:44 06/01/18 03:08 Anthony Costello MD Jun 02, 2018 16:06
--- NOTE | 2018-06-02 21:00 | Discharge Summary ---
DATE OF ADMISSION: 05/28/2018 DATE OF DISCHARGE: 06/02/2018 ADMISSION DIAGNOSES: 1. Sepsis. 2. Urinary tract infection. 3. Diabetes. 4. Hypertension. 5. Recent right transmetatarsal amputation, rule out osteomyelitis of the foot. DISCHARGE DIAGNOSIS: 1. Sepsis. 2. Urinary tract infection. 3. Diabetes. 4. Hypertension. 5. Recent right transmetatarsal amputation, rule out osteomyelitis of the foot. HOSPITAL COURSE: The patient is a pleasant female admitted with complaints of fevers, malaise, weakness. She was diagnosed with sepsis secondary urinary tract infection. She had an MRI of the foot that showed postoperative changes. Podiatry, ID, Cardiology consultations were obtained. Podiatry felt that the MRI findings were more suggestive of healing and postoperative . The patient will be discharged home to complete two additional days of IV antibiotic therapy at the care home. DISCHARGE MEDICATIONS: Please see discharge medication list for discharge medications. DIET: Diabetic cardiac diet. ACTIVITY: Ad-moses. Arnold Rivera M.D. DR: Randall JOB#: [id number] CC:
== END 2018-06-02 18:20 | DRG 871 ==
LOC: EDBD 02:24 → EMR 03:45 → 4E 03:48 → EDBEDREQ 04:29
DX: A41.9 Sepsis, unspecified organism (principal); I50.33 Acute on chronic diastolic (congestive) heart failure; N39.0 Urinary tract infection, site not specified; M86.179 Other acute osteomyelitis, unspecified ankle and foot; E44.0 Moderate protein-calorie malnutrition; I13.0 Hypertensive heart and chronic kidney disease with heart failure and stage 1 through stage 4 chronic kidney disease, or unspecified chronic kidney disease; E11.22 Type 2 diabetes mellitus with diabetic chronic kidney disease; I13.10 Hypertensive heart and chronic kidney disease without heart failure, with stage 1 through stage 4 chronic kidney disease, or unspecified chronic kidney disease; B96.20 Unspecified Escherichia coli [E. coli] as the cause of diseases classified elsewhere; N18.9 Chronic kidney disease, unspecified; Z89.431 Acquired absence of right foot; Z79.4 Long term (current) use of insulin; Z79.02 Long term (current) use of antithrombotics/antiplatelets; G62.9 Polyneuropathy, unspecified; H40.9 Unspecified glaucoma; E78.5 Hyperlipidemia, unspecified; I25.118 Atherosclerotic heart disease of native coronary artery with other forms of angina pectoris; E11.40 Type 2 diabetes mellitus with diabetic neuropathy, unspecified; E11.65 Type 2 diabetes mellitus with hyperglycemia; E83.42 Hypomagnesemia
CPT/HCPCS: 36415; 71045; 76700; 80053; 80061; 81003; 82550; 82962; 83605; 83735; 83880; 84443; 84484; 85007; 85025; 85610; 85730; 86710; 87040; 87081; 87086; 87181; 93005; 93306; 96361; 96365; 96367; 99285; J1815